=== PATIENT | female | born 1995 | race Asian ===

== ENCOUNTER 2019-05-23 14:49 | Emergency (ER) | payer OTHER ==
[~2019-05-23] VITALS: Ht 162.6 cm; Wt 79.5 kg
[2019-05-23 15:15] VITALS: BP 121/67
[2019-05-23] MEDS ORDERED: LO LOESTRIN FE1 TAB PO (15:51)
[2019-05-23 16:00] LABS: COLLECTION METHOD CLEAN CATCH
[2019-05-23 16:09] LABS: MUCOUS Present /lpf; PH 5 (5-8); URINE APPEARANCE Hazy; URINE BACTERIA Rare /hpf; URINE BILIRUBIN Negative (NEGATIVE); URINE BLOOD Negative (NEGATIVE); URINE COLOR Amber; URINE GLUCOSE Negative (NEGATIVE); URINE KETONE 1+ (NEGATIVE); URINE LEUKOCYTE ESTERASE Negative (NEGATIVE); URINE NITRATE Negative (NEGATIVE); URINE PROTEIN(semi-quant) Negative (NEGATIVE); URINE RBC 0-2 /hpf; URINE UROBILINOGEN Negative (NEGATIVE)
[2019-05-23] MEDS ORDERED: FIORICET 325 MG1 TA1 PO (17:20)
[2019-05-23 17:38] VITALS: PULSE 85; TEMP 97.4
== END 2019-05-23 17:38 | disposition home or self-care (01) ==
LOC: COL.ER 14:49
PROVIDERS: Physician Assistant
DX: G43.909 Migraine, unspecified, not intractable, without status migrainosus (principal)
CPT/HCPCS: J1885